=== PATIENT | male | born 1985 | race Caucasian/White ===

== ENCOUNTER 2016-03-29 13:37 | Emergency (ER) | payer MEDICAID, OTHER ==
[~2016-03-29] VITALS: Ht 175.3 cm; Wt 94.8 kg
[2016-03-29 14:22] LABS: Basophils # (auto) 0 uL; Basophils % (auto) 0.4 % (0.0-2.0); Eosinophils # (auto) 0.2 uL; Eosinophils % (auto) 2.7 % (0.0-7.0); Hematocrit 46.8 % (41.0-53.0); Lymphocytes # (auto) 1.4 uL; Lymphocytes % (auto) 23.4 % (10.0-50.0); Mean Corpuscular Hemoglobin 28.5 pg (28.0-32.0); Mean Corpuscular Hgb Conc. 32.1 g/dL (32.0-36.0); Mean Corpuscular Volume 88.6 fL (80.0-100.0); Mean Platelet Volume 7.1 fL (7.4-10.4); Monocytes # (auto) 0.2 uL; Monocytes % (auto) 4.1 % (0.0-12.0); Neutrophils # (auto) 4.2 uL; Neutrophils % (auto) 69.4 % (37.0-80.0); Platelet Count (auto) 333 10^3/uL (140-450); Red Cell Distribution Width 13.9 % (11.6-16.0)
[2016-03-29 14:36] LABS: Albumin 4.4 g/dL (3.4-5.0); BUN/Creatinine Ratio 16.7; Bilirubin, Total 0.2 mg/dL (0.2-1.0); Calcium 9.2 mg/dL (8.5-10.1); Potassium 4.6 mmol/L (3.5-5.1); Total Protein 7.8 g/dL (6.4-8.2)
[2016-03-29 14:57] LABS: Urine Bilirubin Negative (Negative); Urine Blood Negative /uL (Negative); Urine Color Yellow (Yellow); Urine Glucose Normal (Normal); Urine Ketone Negative (Negative); Urine Mucus FEW (None Seen); Urine Nitrite Negative (Negative); Urine RBC 1 /hpf (0 - 3); Urine Urobilinogen Normal (Negative); Urine pH 5.5 (5.0-8.0)
[2016-03-29 15:54] VITALS: BP 128/64
== END 2016-03-29 15:57 | disposition home or self-care (01) ==
LOC: ER 13:43
DX: S39.013A Strain of muscle, fascia and tendon of pelvis, initial encounter (principal); F17.210 Nicotine dependence, cigarettes, uncomplicated; F12.10 Cannabis abuse, uncomplicated; Z88.1 Allergy status to other antibiotic agents; X50.0XXA Overexertion from strenuous movement or load, initial encounter; Y93.89 Activity, other specified; Y99.0 Civilian activity done for income or pay; Y92.89 Other specified places as the place of occurrence of the external cause
CPT/HCPCS: 36415; 76870; 80053; 81001; 82150; 83690; 85025

== ENCOUNTER 2024-09-26 18:31 | Emergency (ER) | payer MEDICAID, OTHER ==
[~2024-09-26] VITALS: Ht 177.8 cm; Wt 86.5 kg
[2024-09-26] MEDS: SODIUM CHLORIDE 0.9% 1,000 ML IV ONE ×2 (19:06→20:39)
--- NOTE | 2024-09-26 19:12 | ED.PDOC ---
GI ASSESSMENT HPI Comments 39-year-old male came to ER via EMS for nausea and vomiting. Patient denies any medical problems. States he has been having episodes of shaking/chills for the past month. Few hours ago, but he started feeling nauseated, and had 3 episodes of coffee-ground emesis. Patient feels weak abdominal discomfort. Upon arrival blood pressure was 153/78 mm Hg, tachycardic at 111 beats per minute, temperature of 98.8 F REVIEW OF SYSTEMS: No fever, (+) chills, or fatigue HEENT: No sore throat, no earache, no congestion, no neck pain. Cardiac: No chest pain. No palpitations. Lungs: No shortness of breath, no cough. GI: (+) nausea, no vomiting, no diarrhea, no constipation, no abdominal pain, (+) hematemesis : No dysuria, frequency, or urgency. No hematuria. Musculoskeletal: No joint pain , no joint swelling, no extremity edema. Skin: No rash, no itching. Neuro: No headache, no dizziness, no weakness Physical exam: General: Awake, alert and oriented. No acute distress. Skin: Skin in warm, dry and intact. Appropriate color for ethnicity. Nailbeds pink with no cyanosis. HEENT: The head is normocephalic and atraumatic. Conjunctivae are clear without exudates or hemorrhage. Sclera is non-icteric. EOM are intact. No signs of nystagmus. Eyelids are normal in appearance without swelling or lesions. Oral mucosa is pink and moist Neck: The neck is supple with normal range of motion. No JVD. Cardiac: Heart rate and rhythm are normal. No murmurs, gallops, or rubs are auscultated. Respiratory: No signs of respiratory distress. Lung sounds are clear in all lobes bilaterally without rales, rhonchi, or wheezes. Abdominal: Abdomen is soft, generally tender without distention. No guarding, rebound or rigidity Bowel sounds are present and normoactive in all four quadrants. Extremities: Upper and lower extremities are atraumatic in appearance without deformity or edema. Neurological: The patient is awake, alert and oriented to person, place, and time with normal speech. Speech is clear. There is no facial asymmetry. Generalized fine tremor noted Psychiatric: Appropriate mood and affect. Good judgement and insight. No visual or auditory hallucinations. Chief Complaint: Nausea/Vomiting Time Seen by MD: 19:11 Reviewed Notes: Manager Investigations Notes Allergies: Coded Allergies: Silver Sulfadiazine (Verified Allergy, Severe, SWELLING RASH, 03/29/16) Penicillins (Verified Allergy, Unknown, 09/26/24) Information Source: Patient Mode of Arrival: EMS Timing: Hours Duration: Intermittent Prehospital treatment: None Quality: Aching Vomitus: Coffee Grounds Stool: Normal Severity: Moderate Past Medical History PAST MEDICAL HISTORY: Denies Surgical History (Other): Spinal stenosis Family History Family History: Reviewed,noncontributory to illness Social History Smoker: Cigarettes Alcohol: Occasionally Drugs: Marijuana Lives In: Home EKG EKG : Pulse Rate (adult): 103 Cardiac Rhythm: ST Was a procedure done? Was a procedure done?: No GI differential Dx Differential Diagnosis: Diverticular disease, Gastritis/PUD, Gastroenteritis, GI hemorrhage, Ischemic Bowel, Pancreatitis, Electrolyte Imbalance, Anemia, Other (Peptic ulcer disease, esophageal varices,Ham's esophagus, cancer, diverticular disease, esophageal rupture/perforation, Karlene-Aj tear) X-Ray, Labs, Meds, VS Vital Signs Date Time Temp Pulse Resp B/P (MAP) Pulse Ox O2 Delivery O2 Flow Rate FiO2 09/26/24 22:00 112 20 132/67 (88) 95 09/26/24 21:09 105 16 130/65 09/26/24 20:39 114 15 115/75 09/26/24 19:35 98.6 104 12 146/59 (88) 99 98.6 09/26/24 19:35 103 09/26/24 19:30 Room Air* 0 21 09/26/24 18:49 103 09/26/24 18:33 98.5 111 25 153/78 96 98.5 Lab Test 09/26/24 21:35 09/26/24 19:49 09/26/24 19:41 09/26/24 18:58 Range/Units Troponin I High Sensitivity 16 14 7 </=54 ng/L Urine Color Colorless Yellow Urine Clarity Clear Clear Urine pH 5.5 5.0-9.0 Urine Specific [place] 1.009 1.001-1.035 Urine Protein Negative Negative Urine Ketones 1+ H Negative Urine Blood Negative Negative /uL Urine Nitrite Negative Negative Urine Bilirubin Negative Negative Urine Urobilinogen Normal Negative mg/dL Urine Leukocyte Esterase Negative Negative /uL Urine Glucose Normal Normal mg/dL White Blood Count 7.5 4.4-10.8 10^3/uL Red Blood Count 5.30 4.5-5.90 10^6/uL Hemoglobin 14.6 13.5-17.5 g/dL Hematocrit 43.8 41.0-53.0 % Mean Corpuscular Volume 82.7 80.0-100.0 fL Mean Corpuscular Hemoglobin 27.6 L 28.0-32.0 pg Mean Corpuscular Hemoglobin Concent 33.4 32.0-36.0 g/dL Red Cell Distribution Width 13.2 11.8-14.3 % Platelet Count 250 140-450 10^3/uL Mean Platelet Volume 6.9 6.9-10.8 fL Neutrophils (%) (Auto) 62.7 37.0-80.0 % Lymphocytes (%) (Auto) 24.9 10.0-50.0 % Monocytes (%) (Auto) 9.7 0.0-12.0 % Eosinophils (%) (Auto) 2.5 0.0-7.0 % Basophils (%) (Auto) 0.2 0.0-2.0 % Neutrophils # (Auto) 4.7 1.6-8.6 10 ^3/uL Lymphocytes # (Auto) 1.9 0.4-5.4 10 ^3/uL Monocytes # (Auto) 0.7 0-1.3 10 ^3/uL Eosinophils # (Auto) 0.2 0-0.8 10 ^3/uL Basophils # (Auto) 0 0-0.2 10 ^3/uL Nucleated Red Blood Cells 0.1 % Prothrombin Time 10.7 9.3-11.8 sec Prothrombin Time INR 1.01 0.9-1.15 Sodium Level 144 136-145 mmol/L Potassium Level 3.8 3.5-5.1 mmol/L Chloride Level 110 H 98-107 mmol/L Carbon Dioxide Level 24 20-31 mmol/L Anion Gap 10 5-15 Blood Urea Nitrogen 13 9-23 mg/dL Creatinine 0.73 0.700-1.30 mg/dL Glomerular Filtration Rate Calc 120 >90 mL/min BUN/Creatinine Ratio 17.8 10.0-20.0 Serum Glucose 91 74-106 mg/dL Lactic Acid Level 1.2 0.4-2.0 mmol/L Calcium Level 9.5 8.7-10.4 mg/dL Lipase 265 H 12-53 U/L Microbiology Date/Time Source Procedure Growth Status 09/26/24 18:58 Blood Blood Culture - Preliminary NO GROWTH AFTER 24 HOURS OF INCUBATION. Resulted 09/26/24 18:40 Blood Blood Culture - Preliminary NO GROWTH AFTER 24 HOURS OF INCUBATION. Resulted Time of 1ST Reevaluation: 19:08 Reevaluation 1ST: Unchanged Patient Education/Counseling: Other (Need for admission) Family Education/Counseling: No Family Present SEPSIS Sepsis Screen Date sepsis recognized/suspect: Sep 26, 2024 Time Sepsis recognized/suspect: 1837 Recent Procedure: No On Antibiotic Therapy: No Respiratory Rate >20: Yes Heart Rate >90: Yes Temp<36 C (96.8 F) or >38.3 C: No SBP <90 or MAP <65 mmHG: No New Acute Mental Status Change: No Is the patient on CPAP, BIPAP,: No Physician Orders Vital Signs Q1HR (09/26/24 18:42) Saline Lock (09/26/24 18:42) Associate (09/26/24 ) Rectal/Core Temps Only (09/26/24 18:42) Notify Md If Abnormal Vs (09/26/24 18:42) Blood Culture (09/26/24 18:42) Chest Xray 1 View (09/26/24 18:42) Stool Occult Blood (09/26/24 18:58) Ct Ab Pel With Iv Con Only (09/26/24 18:58) Ondansetron Hcl (Zofran) (09/26/24 23:30) Clear Liq Diet (09/27/24 Breakfast) Hydrocodone-Acet 5/325mg Tab ([place] 5/32 (09/26/24 23:30) Pls Schedule Appt With [facility] (09/27/24 00:10) Vital Signs Date Time Temp Pulse Resp B/P (MAP) Pulse Ox O2 Delivery O2 Flow Rate FiO2 09/26/24 22:00 112 20 132/67 (88) 95 09/26/24 21:09 105 16 130/65 09/26/24 20:39 114 15 115/75 09/26/24 19:35 98.6 104 12 146/59 (88) 99 98.6 09/26/24 19:35 103 09/26/24 19:30 Room Air* 0 21 09/26/24 18:49 103 09/26/24 18:33 98.5 111 25 153/78 96 98.5 Laboratory Tests Test 09/26/24 18:58 Lactic Acid Level 1.2 mmol/L (0.4-2.0) White Blood Count 7.5 10^3/uL (4.4-10.8) Departure 1 Departure Time of Disposition: 22:29 Impression: Primary Impression: Coffee ground emesis Disposition: LEFT AGAINST MEDICAL ADVICE Condition: Other Comments MDM: 39-year-old male with coffee-ground emesis concerning for upper GI bleed. Initial evaluation included thorough history, physical examination and appropriate diagnostic testing. Given the complexity of the case and need for further management plan was to admit patient to the hospitalist service for further monitoring, treatment and evaluation. Risks, benefits and alternatives of admission and proposed interventions were discussed with the patient. Patient was in agreement with the plan. However patient left the emergency department with an against medical advice. I was unable to discussed with the patient risk of leaving prior to him leaving. Extensive evaluation was performed in attempt to identify or rule out: (See differential diagnosis section) The following tests were ordered, and results were reviewed by me and discussed with patient: (See diagnostic results section) The following test were independently interpreted by me: N/A I reviewed and agreed with the following test results read by other providers: N/A I reviewed the following notes from the pt's past medical encounters: N/A Additional information was gathered from interviewing the following independent historians: EMS personnel Discussion of management or test interpretation with external physician/other qualified health respiratory care assistant: N/A Addressed an acute or chronic illness that poses a threat to life or bodily function: Upper GI bleed Decision regarding hospitalization or escalation of hospital level of care: Risk and benefits of admission for further treatment of patient's condition was considered. Due to patient's current clinical condition, high risk of decline and poor outcome if discharged and need for further inpatient management and monitoring, patient will be admitted to the hospital. Discussed with patient. Critical Care Note Critical Care Time?: No Stability Stability form required: No Heart Score Heart Score: Heart Score Response (Comments) Value History N/A 0 EKG N/A 0 Age N/A 0 Risk Factors N/A 0 Troponin N/A 0 Total 0 I personally scribed for FAYE FULTON MD ([email or web address]) on 09/26/24 at 19:12. Electronically submitted by Sergio Gonzalez ([email or web address]). I personally scribed for FAYE FULTON MD ([email or web address]) on 09/26/24 at 19:35. Electronically submitted by Sergio Gonzalez ([email or web address]). FAYE FULTON MD Sep 26, 2024 19:12
[2024-09-26 19:20] LABS: Hematocrit 43.8 % (41.0-53.0); Hemoglobin 14.6 g/dL (13.5-17.5); Mean Corpuscular Hemoglobin 27.6 pg (28.0-32.0); Mean Corpuscular Volume 82.7 fL (80.0-100.0); Nucleated Red Blood Cells % 0.1 %; Potassium 3.8 mmol/L (3.5-5.1); Sodium 144 mmol/L (136-145)
[2024-09-26 19:21] LABS: Anion Gap 10 (5-15); Carbon Dioxide 24 mmol/L (20-31)
[2024-09-26 19:22] LABS: Calcium 9.5 mg/dL (8.7-10.4)
[2024-09-26 19:27] LABS: BUN/Creatinine Ratio 17.8 (10.0-20.0); Blood Urea Nitrogen 13 mg/dL (9-23); Glucose 91 mg/dL (74-106)
[2024-09-26 19:29] LABS: Chloride 110 mmol/L (98-107)
[2024-09-26 19:33] LABS: INR 1.01 (0.9-1.15); Prothrombin Time 10.7 sec (9.3-11.8)
[2024-09-26 19:35] VITALS: TEMP 98.6
--- NOTE | 2024-09-26 19:39 | DVH ---
EXAM: XY CHEST XRAY 1 VIEW CLINICAL HISTORY: Suspected Sepsis TECHNIQUE: Single AP view of the chest WID: COMPARISON: None FINDINGS: Lines and tubes: None Chest: The heart size and pulmonary vasculature is within normal limits. No pleural effusion, pneumothorax, or consolidation. The osseous structures are grossly intact. IMPRESSION: No acute cardiopulmonary abnormality.
[2024-09-26 20:04] LABS: Urine Protein, UAD Negative (Negative)
[2024-09-26] MEDS: PANTOPRAZOLE 40 MG/10 ML VIAL INJ IV ONE (20:38)
[2024-09-26] MEDS: ONDANSETRON HCL 4 MG/2 ML VIAL IV ONE (20:38)
[2024-09-26] MEDS: MORPHINE SULFATE INJ 2 MG/ml SYRG IV ONE (20:39)
[2024-09-26] MEDS: IOHEXOL 300 MG/ML 100ML BOTTLE IJ ONE (20:39)
--- NOTE | 2024-09-26 20:58 | DVH ---
Exam: CT CT AB PEL WITH IV CON ONLY History: abd pain gi bleed Comparison Study: None TECHNIQUE: Multidetector CT of the abdomen was performed from lung bases to pubic symphysis. Imaging was performed without IV contrast. Axial, coronal and sagittal multiplanar reformats were obtained fr om the axial data set by the technologist. Radiation Dose Information: CT Dose: CTDI volume is 13.19 mGy. Dose-length product is 808.58 mGy*cm FINDINGS: Evaluation of solid organs is limited due to lack of intravenous contrast use. Findings: Lung Bases: No acute or significant lung base finding. Normal heart size. No pleural or pericardial effusion. Liver: The liver is normal in size. No focal lesions. Gallbladder and Biliary Tree: Unremarkable Spleen: Unremarkable Pancreas: The pancreas is grossly normal in appearance. Adrenal Glands: Unremarkable Kidneys: Kidneys are grossly normal without calculi or hydronephrosis. Bladder: Grossly unremarkable for degree of distention. Bowel: The stomach is grossly normal in appearance. Small bowel and colon are normal in caliber and d istribution. The appendix is not visualized; however, no secondary findings of acute appendicitis id entified. Ascites: Absent Lymphadenopathy: No mesenteric, retroperitoneal or periportal lymphadenopathy. Abdominal Wall and Mesentery: Unremarkable. Vasculature: The visualized abdominal aorta is normal in size and caliber. Evaluation of abdominal a nd pelvic vessels is limited due to lack of intravenous contrast. Pelvic Organs: Unremarkable Musculoskeletal: No aggressive focal bony lesions, acute fractures or dislocation. Soft tissues: Unremarkable IMPRESSION: 1. No acute abdominal or pelvic finding. 2. No calcified gallstones 3. No nephrolithiasis or hydronephrosis 4. No finding of bowel obstruction. Radiation optimization: All CT scans at this facility use at least one of these dose optimization lelo hniques: automated exposure control mA and/or kV adjustment per patient size (includes targeted exam s where dose is matched to clinical indication) or iterative reconstruction.
[2024-09-26 22:00] VITALS: BP 132/67; PULSE 112; RESP 20; O2SAT 95
[2024-09-26] MEDS: METOCLOPRAMIDE HCL 5MG/ml INJ 2ml VIAL IV ONE (22:21)
[2024-09-26] MEDS ORDERED: ONDANSETRON HCL 4 MG/2 ML VIAL IV PRN (23:30)
[2024-09-26] MEDS ORDERED: HYDROcodone-ACET 5/325MG TAB PO PRN (23:30)
--- NOTE | 2024-09-27 07:15 | ECG ---
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
== END 2024-09-27 00:09 | disposition left against medical advice (07) ==
LOC: EDBD 18:31 → ER 18:37
DX: R11.2 Nausea with vomiting, unspecified (principal); R68.83 Chills (without fever); F17.210 Nicotine dependence, cigarettes, uncomplicated; F12.90 Cannabis use, unspecified, uncomplicated; R00.0 Tachycardia, unspecified; Z88.0 Allergy status to penicillin; Z88.8 Allergy status to other drugs, medicaments and biological substances
CPT/HCPCS: 36415; 71045; 74177; 80048; 81003; 83605; 83690; 84484; 85025; 85610; 87040; 93005; 96361; 96374; 96375; 99285; J2270; J2405; J2470; J2765; J7030; Q9967